=== PATIENT | male | born 1940 | race Caucasian/White ===

== ENCOUNTER → 2022-10-18 12:44 | Outpatient (BNVA) | payer MEDICARE, BC, SELFPAY | PROVIDERS: PCP Family Medicine; Visit Provider Otolaryngology | DX: B36.9 Superficial mycosis, unspecified (principal); H62.42 Otitis externa in other diseases classified elsewhere, left ear; H61.813 Exostosis of external canal, bilateral; H91.93 Unspecified hearing loss, bilateral | CPT/HCPCS: 99203 ==

== ENCOUNTER → 2022-10-24 08:57 | Outpatient (BNVA) | payer MEDICARE, BC, SELFPAY | PROVIDERS: PCP Family Medicine; Visit Provider Otolaryngology | DX: B36.9 Superficial mycosis, unspecified (principal); H62.42 Otitis externa in other diseases classified elsewhere, left ear; H72.02 Central perforation of tympanic membrane, left ear; H61.813 Exostosis of external canal, bilateral; H91.93 Unspecified hearing loss, bilateral | CPT/HCPCS: 99213 ==

== ENCOUNTER → 2022-11-21 08:03 | Outpatient (BNVA) | payer MEDICARE, BC, SELFPAY | PROVIDERS: PCP Family Medicine; Visit Provider Otolaryngology | DX: H72.02 Central perforation of tympanic membrane, left ear (principal); H61.813 Exostosis of external canal, bilateral; B36.9 Superficial mycosis, unspecified; H62.42 Otitis externa in other diseases classified elsewhere, left ear | CPT/HCPCS: 99212 ==

== ENCOUNTER → 2022-12-21 08:30 | Outpatient (BNVA) | payer MEDICARE, BC, SELFPAY | PROVIDERS: PCP Family Medicine; Visit Provider Otolaryngology | DX: H72.02 Central perforation of tympanic membrane, left ear (principal); H61.813 Exostosis of external canal, bilateral; H61.23 Impacted cerumen, bilateral | CPT/HCPCS: 69210; 99212 ==

== ENCOUNTER → 2023-01-16 11:13 | Outpatient (BNVA) | payer MEDICARE, BC, SELFPAY | PROVIDERS: PCP Family Medicine; Visit Provider Otolaryngology | DX: B36.9 Superficial mycosis, unspecified (principal); H62.42 Otitis externa in other diseases classified elsewhere, left ear; H61.23 Impacted cerumen, bilateral; H61.813 Exostosis of external canal, bilateral; H72.02 Central perforation of tympanic membrane, left ear | CPT/HCPCS: 69210; 99213 ==

== ENCOUNTER → 2023-01-30 10:49 | Outpatient (BNVA) | payer MEDICARE, BC, SELFPAY | PROVIDERS: PCP Family Medicine; Visit Provider Otolaryngology | DX: B36.9 Superficial mycosis, unspecified (principal); H61.813 Exostosis of external canal, bilateral; H62.42 Otitis externa in other diseases classified elsewhere, left ear; H72.02 Central perforation of tympanic membrane, left ear | CPT/HCPCS: 99213 ==

== ENCOUNTER → 2023-02-14 09:18 | Outpatient (BNVA) | payer MEDICARE, BC, SELFPAY | PROVIDERS: PCP Family Medicine; Visit Provider Otolaryngology | DX: H72.02 Central perforation of tympanic membrane, left ear (principal); H61.813 Exostosis of external canal, bilateral | CPT/HCPCS: 99213 ==

== ENCOUNTER → 2023-03-17 08:15 | Outpatient (BNVA) | payer MEDICARE, BC, SELFPAY | PROVIDERS: PCP Family Medicine; Visit Provider Otolaryngology | DX: H61.23 Impacted cerumen, bilateral (principal); H61.813 Exostosis of external canal, bilateral; H72.02 Central perforation of tympanic membrane, left ear; H61.892 Other specified disorders of left external ear | CPT/HCPCS: 69210; 99212 ==

== ENCOUNTER → 2023-05-12 08:38 | Outpatient (BNVA) | payer MEDICARE, BC, SELFPAY | PROVIDERS: PCP Family Medicine; Visit Provider Otolaryngology | DX: H61.813 Exostosis of external canal, bilateral (principal); H91.93 Unspecified hearing loss, bilateral | CPT/HCPCS: 99213 ==

== ENCOUNTER → 2023-07-05 08:04 | Outpatient (BNVA) | payer MEDICARE, BC, SELFPAY | PROVIDERS: PCP Family Medicine; Visit Provider Otolaryngology | DX: H61.23 Impacted cerumen, bilateral (principal); H61.813 Exostosis of external canal, bilateral | CPT/HCPCS: 69210; 99212 ==

== ENCOUNTER → 2023-10-10 08:14 | Outpatient (BNVA) | payer MEDICARE, BC, SELFPAY | PROVIDERS: PCP Family Medicine; Visit Provider Otolaryngology | DX: H61.23 Impacted cerumen, bilateral (principal); H61.813 Exostosis of external canal, bilateral; H90.6 Mixed conductive and sensorineural hearing loss, bilateral | CPT/HCPCS: 69210; 99213 ==

== ENCOUNTER → 2024-01-11 08:12 | Outpatient (BNVA) | payer MEDICARE, BC, SELFPAY | PROVIDERS: PCP Family Medicine; Visit Provider Otolaryngology | DX: H61.23 Impacted cerumen, bilateral (principal); H90.6 Mixed conductive and sensorineural hearing loss, bilateral; H61.813 Exostosis of external canal, bilateral | CPT/HCPCS: 69210; 99212 ==

== ENCOUNTER → 2025-01-13 08:27 | Outpatient (BNVA) | payer MEDICARE, BC, SELFPAY | PROVIDERS: PCP Family Medicine; Referring Provider Internal Medicine Hematology & Oncology; Visit Provider Anesthesiology Pain Medicine | DX: M54.9 Dorsalgia, unspecified (principal); M51.16 Intervertebral disc disorders with radiculopathy, lumbar region | CPT/HCPCS: 99204 ==

== ENCOUNTER → 2025-01-15 09:07 | Outpatient (BNVA) | payer MEDICARE, BC, SELFPAY | PROVIDERS: PCP Family Medicine; Visit Provider Anesthesiology Pain Medicine | DX: M54.16 Radiculopathy, lumbar region (principal); M54.9 Dorsalgia, unspecified | CPT/HCPCS: 64483; 64484; J1100; J3490; J9999 ==

== ENCOUNTER → 2025-02-03 09:04 | Outpatient (BNVA) | payer MEDICARE, BC, SELFPAY | PROVIDERS: PCP Family Medicine; Visit Provider Anesthesiology Pain Medicine | DX: M54.9 Dorsalgia, unspecified (principal); M51.16 Intervertebral disc disorders with radiculopathy, lumbar region | CPT/HCPCS: 99214 ==

== ENCOUNTER → 2025-02-12 10:19 | Outpatient (BNVA) | payer MEDICARE, BC, SELFPAY | PROVIDERS: PCP Family Medicine; Visit Provider Anesthesiology Pain Medicine | DX: M47.816 Spondylosis without myelopathy or radiculopathy, lumbar region (principal); M54.16 Radiculopathy, lumbar region; M54.9 Dorsalgia, unspecified | CPT/HCPCS: 62323; J1010; J9999 ==

== ENCOUNTER → 2025-02-25 09:57 | Outpatient (BNVA) | payer MEDICARE, BC, SELFPAY | PROVIDERS: PCP Family Medicine; Visit Provider Anesthesiology Pain Medicine | DX: M54.9 Dorsalgia, unspecified (principal); M51.16 Intervertebral disc disorders with radiculopathy, lumbar region | CPT/HCPCS: 99214 ==

== ENCOUNTER 2025-04-09 20:42 | Emergency (ER) | payer MEDICARE, BC, SELFPAY ==
--- OUTSIDE RECORDS SUMMARY | 2025-04-07 10:11 | XMS_ITS | Encounter Summary ---
Author Organization [facility] Address 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) Discharge Disposition: Home or Self Care Social History Tobacco Use Types Packs/Day Years Used Date Smoking Tobacco: Former Cigarettes Passive Smoke Exposure: Past Smokeless Tobacco: Never Alcohol Use Standard Drinks/Week Comments Never 0 (1 standard drink = 0.6 oz pur e alcohol) Sex and Gender Information Value Date Recorded Sex Assigned at Not on file Legal 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[employer] Gender Identity Not on file Sexual Orientation Not on file Occupation Industry Job Start Date Job End Date Not on file Not on file Not on file Not on file documented as of this encounter Last Filed Vital Signs Vital Sign Reading Time Taken Comments Blood Pressure 143/86 04/07/2025 12:00 PM CDT Pulse - - Temperature 36.3 C (97.3 F) 04/07/2025 10:16 AM CDT Respiratory Rate 18 04/07/2025 12:00 PM CDT Oxygen Saturation 94% 04/07/2025 12:00 PM CDT Inhaled Oxygen Concentration - - Weight 79.5 kg (175 lb 3.2 oz) 04/07/2025 10:16 AM CDT Height 185.4 cm (6' 1 ) 04/07/2025 10:16 AM CDT Body Mass Index 23.11 04/07/2025 10:16 AM CDT documented in this encounter Discharge Instructions * Attachments The following attachments cannot be sent through Care Everywhere. * Fever: General Info (Turkmen) documented in this encounter Medications at Time of Discharge dabrafenib (TAFINLAR) 75 mg capsule Take 75 mg by mouth 2 times daily before meals. trametinib (Mekinist) 2 mg tablet Take 2 mg by mouth daily before breakfast. traMADoL (ULTRAM) 50 mg tablet TAKE 1 tablet BY MOUTH every 6 HOURS FOR 30 DAYS, FOR PAIN. 11/05/2024 Lenvima 20 mg/day (10 mg x 2) capsule 10/11/2024 levothyroxine 150 mcg tablet Take 1 Tablet by mouth daily. 11/11/2024 rOPINIRole (REQUIP) 0.25 mg tabletIndication s:RLS (restless legs syndrome) Take 1 Tablet (0.25 mg) by mouth daily at bedtime. 90 Tablet 2 11/22/2024 amLODIPine (Norvasc) 10 mg tabletIndication s:HTN (hypertension), benign Take 1 Tablet (10 mg) by mouth daily. 100 Tablet 2 09/19/2024 lisinopriL (PRINIVIL) 10 mg tabletIndication s:HTN (hypertension), benign Take 20mg in the morning and 10mg at night. If blood pressure in the morning is >150/100, increase to 20mg bid. 120 Tablet 3 08/22/2024 HYDROcodone-acet aminophen (NORCO) 10-325 mg Tablet 07/18/2024 LORazepam (ATIVAN) 0.5 mg tablet 07/18/2024 magnesium oxide (MAG-OX) 400 mg (241.3 mg magnesium) tablet Take 1 tablet by oral route for 30 days. 06/11/2024 Lenvima 10 mg/day (10 mg x 1) capsule 07/15/2024 atorvastatin (LIPITOR) 20 mg tabletIndication s:Hyperlipidemia with target LDL less than 130 Take 1 Tablet (20 mg) by mouth daily. 100 Tablet 3 07/19/2024 levothyroxine 137 mcg tablet Take 1 Tablet (137 mcg) by mouth daily in the morning. 90 Tablet 3 07/05/2024 MAGNESIUM OXIDE ORAL Take by mouth. methocarbamoL (ROBAXIN) 500 mg tablet Take 1 tablet 3 times a day by oral route as needed. 09/14/2023 dorzolamide (TRUSOPT) 2 % solution instill 1 drop into each eye twice daily 11/20/2023 dorzolamide-konrad loL (COSOPT) 22.3-6.8 mg/mL solution 1 Drop daily at bedtime. 05/15/2019 latanoprost (XALATAN) 0.005 % solution Administer 1 Drop in both eyes daily at bedtime. 05/15/2019 documented as of this encounter ED Notes * Lacho Mcwilliams RN - 04/07/2025 12:25 PM CDT Pt reports to the ed with co a fever. Pt reports his highest fever being 102. Pt currently is afebrile and reports taking tylenol. Pt is a cancer pt and recently started a new medication. Pt reports that they called his oncologist and was told to come to the ed due to possible infection. Pt is a/o X4 with even and unlabored breathing and denies any CP,SOB or ABD pain. * Miller Hall MD - 04/07/2025 10:10 AM CDT HISTORY OF PRESENT ILLNESS Alvarez Soto, a 84 y.o. male presents to the ED with a Chief Complaint of Fever Subjective This patient is an 84-year-old white male who was told to come into the emergency department for evaluation of a fever. 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 He contacted his oncologist who recommended he come into the emergency department for evaluation. His fever started 2 days ago. This morning his temperature was 102. He did take Tylenol this morning. He is here with his daughter who helps take care of him. Patient denies cough, vomiting, diarrhea and dysuria. He does have some arthralgias. REVIEW OF SYSTEMS Review of Systems Constitutional: Positive for fever. Negative for appetite change, chills, diaphoresis and fatigue. HENT: Negative for congestion, ear pain, postnasal drip, rhinorrhea, sinus pressure and sore throat. Eyes: Negative for pain and visual disturbance. Respiratory: Negative for cough, chest tightness, shortness of breath and wheezing. Cardiovascular: Negative for chest pain, palpitations and leg swelling. Gastrointestinal: Negative for abdominal distention, abdominal pain, blood in stool, constipation, diarrhea, nausea and vomiting. Genitourinary: Negative for decreased urine volume, difficulty urinating, dysuria, flank pain, frequency, hematuria, testicular pain and urgency. Musculoskeletal: Positive for arthralgias. Negative for back pain, joint swelling, myalgias, neck pain and neck stiffness. Skin: Negative for rash. Neurological: Negative for dizziness, seizures, syncope, speech difficulty, weakness, light-headedness, numbness and headaches. Hematological: Negative for adenopathy. Psychiatric/Behavioral: Negative for behavioral problems, confusion, decreased concentration, dysphoric mood, self-injury, sleep disturbance and suicidal ideas. The patient is not nervous/anxious. All other systems reviewed and are negative. PAST MEDICAL HISTORY REVIEWED MEDICAL: Patient has a past medical history of BPH (benign prostatic hyperplasia), Colon polyps, COVID-19, Elevated PSA, H/O urinary frequency, [place] (hard of hearing), HTN (hypertension), HTN (hypertension), Hyperlipidemia, Hyperlipidemia, and Melanoma ([facility]/HCC) (10/10/2008). SURGICAL: Patient has a past surgical history that includes surgical other (1967); pr colonoscopy flx dx w/collj spec when pfrmd (04/26/2010); pr colonoscopy flx dx w/collj spec when pfrmd (N/A, 09/02/2014); kneereplacement (Left); turp; and pr thyroidectomy total/subtotal lmtd neck dissect (N/A, 01/18/2024). FAMILY: Patient's family history includes No Known Problems in his father and mother. SOCIAL: reports that he has quit smoking. His smoking use included cigarettes. He has been exposed to tobacco smoke. He has never used smokeless tobacco. He reports that he does not drink alcohol and does not use drugs. No history on file. Social History Other Topics Concern Not on file ALLERGIES Patient has no known allergies. HOME MEDICATIONS Discharge Medication List as of 04/07/2025 12:55 PM CONTINUE these medications which have NOT CHANGED Details dabrafenib (TAFINLAR) 75 mg capsule Take 75 mg by mouth 2 times daily before meals. trametinib (Mekinist) 2 mg tablet Take 2 mg by mouth daily before breakfast. traMADoL (ULTRAM) 50 mg tablet TAKE 1 tablet BY MOUTH every 6 HOURS FOR 30 DAYS, FOR PAIN. Lenvima 20 mg/day (10 mg x 2) capsule HOLLI !! levothyroxine 150 mcg tablet Take 1 Tablet by mouth daily. rOPINIRole (REQUIP) 0.25 mg tablet Take 1 Tablet (0.25 mg) by mouth daily at bedtime., Disp-90 Tablet, R-2 amLODIPine (Norvasc) 10 mg tablet Take 1 Tablet (10 mg) by mouth daily., Disp- 100 Tablet, R-2 lisinopriL (PRINIVIL) 10 mg tablet Take 20mg in the morning and 10mg at night. If blood pressure inthe morning is >150/100, increase to 20mg bid., Disp-120 Tablet, R-3 HYDROcodone-acetaminophen (NORCO) 10-325 mg Tablet LORazepam (ATIVAN) 0.5 mg tablet !! magnesium oxide (MAG-OX) 400 mg (241.3 mg magnesium) tablet Take 1 tablet by oral route for 30 days. Lenvima 10 mg/day (10 mg x 1) capsule HOLLI atorvastatin (LIPITOR) 20 mg tablet Take 1 Tablet (20 mg) by mouth daily., Disp- 100 Tablet, R-3 !! levothyroxine 137 mcg tablet Take 1 Tablet (137 mcg) by mouth daily in the morning., Disp-90 Tablet, R-3 !! MAGNESIUM OXIDE ORAL Take by mouth. methocarbamoL (ROBAXIN) 500 mg tablet Take 1 tablet 3 times a day by oral route as needed. dorzolamide (TRUSOPT) 2 % solution instill 1 drop into each eye twice daily dorzolamide-timoloL (COSOPT) 22.3-6.8 mg/mL solution 1 Drop daily at bedtime. latanoprost (XALATAN) 0.005 % solution Administer 1 Drop in both eyes daily at bedtime. !! - Potential duplicate medications found. Please discuss with provider. Objective PHYSICAL EXAM INITIAL VS BP: 133/81 (04/07/25 1016), Heart Rate: 84 bpm (04/07/25 1016), Resp: 18 (04/07/25 1016), Pulse: (not recorded), Temp: 97.3 ??F (36.3 ??C) (04/07/25 1016), Temp src: Tympanic (04/07/25 1016), SpO2: 97 % (04/07/25 1016), Height: 6' 1 (185.4 cm) (04/07/25 1016), Weight: 79.5 kg (175 lb 3.2 oz) (04/07/25 1016), BMI (Calculated): 23.13 (04/07/25 1016) No LMP for male patient. Physical Exam Vitals and nursing note reviewed. Constitutional: General: He is not in acute distress. Appearance: Normal appearance. He is not ill-appearing. HENT: Head: Normocephalic and atraumatic. Eyes: Conjunctiva/sclera: Conjunctivae normal. Pupils: Pupils are equal, round, and reactive to light. Cardiovascular: Rate and Rhythm: Normal rate and regular rhythm. Pulmonary: Effort: Pulmonary effort is normal. No respiratory distress. Breath sounds: Normal breath sounds. Abdominal: General: Abdomen is flat. Bowel sounds are normal. Palpations: Abdomen is soft. Tenderness: There is no abdominal tenderness. Musculoskeletal: General: No tenderness. Normal range of motion. Skin: General: Skin is warm and dry. Neurological: General: No focal deficit present. Mental Status: He is alert and oriented to person, place, and time. Psychiatric: Mood and Affect: Mood normal. Behavior: Behavior normal. DIAGNOSTICS LAB: COMPREHENSIVE METABOLIC PANEL - Abnormal Result Value SODIUM 135 (*) POTASSIUM 4.4 CHLORIDE 102 CO2 22 CALCIUM 8.6 (*) BUN 34 (*) CREATININE 1.11 GLUCOSE 122 (*) TOTAL PROTEIN 5.6 (*) ALBUMIN 3.2 (*) BILIRUBIN TOTAL 0.4 ALKALINE PHOSPHATASE 124 AST 39 ALT 29 GFR >60 ANION GAP 11 URINALYSIS WITH REFLEX MICROSCOPIC - Abnormal COLOR UA Yellow CLARITY UA Slightly Cloudy (*) SPECIFIC GRAVITY UA 1.020 PH UA 6.0 LEUKOCYTE ESTERASE UA 1+ (*) NITRITE UA Negative PROTEIN UA 1+ (*) GLUCOSE UA Negative KETONES UA Negative UROBILINOGEN UA 0.2 BILIRUBIN UA Negative BLOOD UA Negative CBC WITH DIFFERENTIAL - Abnormal WBC 4.1 (*) RBC 3.66 (*) HEMOGLOBIN 11.8 (*) HEMATOCRIT 35.3 (*) MCV 96.4 (*) MCH 32.2 MCHC 33.4 RDW 14.6 (*) RDW-STDEV 52.1 PLATELETS 124 (*) MPV 9.8 (*) NEUTROPHILS 82 (*) LYMPHOCYTES 7 (*) MONOCYTES 11 EOSINOPHILS 0 (*) BASOPHILS 0 IMMATURE GRANULOCYTES 0 NEUTROPHIL ABSOLUTE 3.33 LYMPHOCYTE ABSOLUTE 0.28 (*) MONOCYTE ABSOLUTE 0.45 EOSINOPHIL ABSOLUTE 0.00 (*) BASOPHILS ABSOLUTE 0.01 IMMATURE GRANULOCYTES ABSOLUTE 0.01 LACTIC ACID - Abnormal LACTIC ACID 2.2 (*) URINALYSIS MICROSCOPY ONLY - Abnormal WBC UA 6-10 (*) RBC UA 0-2 BACTERIA UA Negative EPITHELIAL CELLS, URINE 0-5 BLOOD CULTURE BLOOD CULTURE RADIOLOGY: XR CHEST PA OR AP 1 VW Radiologist Impression IMPRESSION: Please see below. Exam: XR CHEST PA OR AP 1 VW Date/Time of Exam: 04/07/2025 10:55 AM Reason For Exam: Trauma. Diagnosis: See Reason for Exam. Comparison: March 10, 2024. FINDINGS: Cardiac mediastinal silhouette is stable. Heart size normal. Old granulomatous residuals. Lungs are grossly clear. Scoliosis. No acute osseous finding. IMPRESSION: Nothing acute. EKG: PROCEDURES Procedures MEDICAL DECISION MAKING AND PLAN OF CARE Medical Decision Making Patient is afebrile here. His chest x-ray was normal. CBC revealed a white blood cell count of 4.1.Hemoglobin 11.8. Platelet count 124. CMP revealed a BUN of 34 and creatinine of 1.11. Lactic acid was 2.2. Urinalysis was normal. We did give him a bolus of normal saline. Discussed the case with hisoncologist, Dr. Armando, he does not recommend antibiotics at this time. He recommended follow- up at his regularly scheduled appointment. All of this was discussed with the patient. He was dischargedin stable condition. Amount and/or Complexity of Data Reviewed Labs: ordered. Radiology: ordered. Clinical Scoring & Consults Medications Administered During the ED Stay from 04/07/2025 1010 to 04/08/20252028 Date/Time Order Dose Route Action 04/07/2025 1202 CDT sodium chloride 0.9 % bolus solution 1,000 mL 1,000 mL IV New Bag Discharge Medication List as of 04/07/2025 12:55 PM CONTINUE these medications which have NOT CHANGED Details dabrafenib (TAFINLAR) 75 mg capsule Take 75 mg by mouth 2 times daily before meals. trametinib (Mekinist) 2 mg tablet Take 2 mg by mouth daily before breakfast. traMADoL (ULTRAM) 50 mg tablet TAKE 1 tablet BY MOUTH every 6 HOURS FOR 30 DAYS, FOR PAIN. Lenvima 20 mg/day (10 mg x 2) capsule HOLLI !! levothyroxine 150 mcg tablet Take 1 Tablet by mouth daily. rOPINIRole (REQUIP) 0.25 mg tablet Take 1 Tablet (0.25 mg) by mouth daily at bedtime., Disp-90 Tablet, R-2 amLODIPine (Norvasc) 10 mg tablet Take 1 Tablet (10 mg) by mouth daily., Disp- 100 Tablet, R-2 lisinopriL (PRINIVIL) 10 mg tablet Take 20mg in the morning and 10mg at night. If blood pressure inthe morning is >150/100, increase to 20mg bid., Disp-120 Tablet, R-3 HYDROcodone-acetaminophen (NORCO) 10-325 mg Tablet LORazepam (ATIVAN) 0.5 mg tablet !! magnesium oxide (MAG-OX) 400 mg (241.3 mg magnesium) tablet Take 1 tablet by oral route for 30 days. Lenvima 10 mg/day (10 mg x 1) capsule HOLLI atorvastatin (LIPITOR) 20 mg tablet Take 1 Tablet (20 mg) by mouth daily., Disp- 100 Tablet, R-3 !! levothyroxine 137 mcg tablet Take 1 Tablet (137 mcg) by mouth daily in the morning., Disp-90 Tablet, R-3 !! MAGNESIUM OXIDE ORAL Take by mouth. methocarbamoL (ROBAXIN) 500 mg tablet Take 1 tablet 3 times a day by oral route as needed. dorzolamide (TRUSOPT) 2 % solution instill 1 drop into each eye twice daily dorzolamide-timoloL (COSOPT) 22.3-6.8 mg/mL solution 1 Drop daily at bedtime. latanoprost (XALATAN) 0.005 % solution Administer 1 Drop in both eyes daily at bedtime. !! - Potential duplicate medications found. Please discuss with provider. 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 See after visit summary for patient education on discharged patients. ED Disposition ED Disposition Discharge Condition Stable User Miller Hall MD Date/Time MonApr 07, 2025 12:52 PM Comment -- ATTESTATION STATEMENTS documented in this encounter Miscellaneous Notes * Gen AI SILVIO - GENERATIVE AI HANDOFF NOTE - 04/08/2025 11:55 PM CDT documented in this encounter Plan of Treatment Pending Results Name Type Priority Associated Diagnoses Date /Time BLOOD CULTURE Microbiology Stat 5 11:00 AM CDT BLOOD CULTURE Microbiology Stat 5 10:42 AM CDT BLOOD CULTURE Microbiology Stat 5 11:00 AM CDT BLOOD CULTURE Microbiology Stat 5 10:42 AM CDT Scheduled Orders Name Type Priority Associated Diagnoses Orde r Schedule BLOOD CULTURE Microbiology Routine ONE TIME for 1 Occurrences starting 04/07/2025 until 04/07/2025 BLOOD CULTURE Microbiology Routine ONE TIME for 1 Occurrences starting 04/07/2025 until 04/07/2025 documented as of this encounter Procedures Procedure Name Priority Date/Time Associated Diagnosis Comments URINALYSIS MICROSCOPY ONLY Stat 04/07/2025 11:24 AM CDT URINALYSIS W/REFLEX MICROSCOPIC Stat 04/07/2025 11:24 AM CDT BLOOD CULTURE Stat 04/07/2025 11:00 AM CDT XR CHEST PA OR AP 1 VW Stat 10:55 AM CDT LACTIC ACID Stat 04/07/2025 10:42 AM CDT CBC WITH DIFFERENTIAL Stat 04/07/2025 10:42 AM CDT BLOOD CULTURE Stat 04/07/2025 10:42 AM CDT COMPREHENSIVE METABOLIC PANEL Stat 04/07/2025 10:42 AM CDT documented in this encounter Results * (ABNORMAL) URINALYSIS MICROSCOPY ONLY (04/07/2025 11:24 AM CDT) WBC UA 6-10(A) 0 - 2 /hpf 04/07/2025 12:21 PM [address] [facility] RBC UA 0-2 0 - 2 /hpf 04/07/2025 12:21 PM [address] [facility] BACTERIA UA Negative Negative /hpf 04/07/2025 12:[address] PM [address] [facility] EPITHELIAL CELLS, URINE 0-5 0 - 5 /hpf 04/07/2025 12:21 PM CD[address] [facility] Urine URINE SPECIMEN OBTAINED BY CLEAN CATCH PROCEDURE / Unknown Collection / Unknown 04/07/2025 11:24 AM CDT 04/07/2025 12:20 PM CDT us Miller Hall MD URINE ORDERABLES Final R esult [facility] CLIA # [id number] [address] [place] [phone] * (ABNORMAL) URINALYSIS WITH REFLEX MICROSCOPIC (04/07/2025 11:24 AM CDT) COLOR UA Yellow Pale to Dark Yellow 04/07/2025 12:[address] [facility] CLARITY UA Slightly Cloudy(A) Clear 04/07/2025 12:21 PM [address] [facility] SPECIFIC GRAVITY UA 1.020 1.003 - 1.035 04/07/2025 12:[address] [facility] PH UA 6.0 5.0 - 8.0 04/07/2025 12:21 PM [facility] LEUKOCYTE ESTERASE UA 1+(A) Negative 04/07/2025 12:21 PM [facility] NITRITE UA Negative Negative 04/07/2025 12:21 PM [facility] PROTEIN UA 1+(A) Negative 04/07/2025 12:21 PM [facility] GLUCOSE UA Negative Negative 04/07/2025 12:21 PM [facility] KETONES UA Negative Negative 04/07/2025 12:21 PM [facility] UROBILINOGEN UA 0.2 <2.0 mg/dL 12:21 PM [facility] BILIRUBIN UA Negative Negative 04/07/2025 12:21 PM [facility] BLOOD UA Negative Negative 04/07/2025 12:21 PM [facility] Urine URINE SPECIMEN OBTAINED BY CLEAN CATCH PROCEDURE / Unknown Collection / Unknown 04/07/2025 11:24 AM CDT 04/07/2025 12:20 PM CDT Miller Hall MD URINE ORDERABLES Final R esult [id number] [address] [place] [id number] * XR CHEST PA OR AP 1 VW (04/07/2025 10:55 AM CDT) Anatomical Region Laterality Modality Chest Computed Radiogr aphy 04/07/2025 10:5 5 AM CDT Impressions 04/07/2025 11:04 AM CDT IMPRESSION: Please see below. Exam: XR CHEST PA OR AP 1 VW Date/Time of Exam: 04/07/2025 10:55 AM Reason For Exam: Trauma. Diagnosis: See Reason for Exam. Comparison: March 10, 2024. FINDINGS: Cardiac mediastinal silhouette is stable. Heart size normal. Old granulomatous residuals. Lungs are grossly clear. Scoliosis. No acute osseous finding. IMPRESSION: Nothing acute. Narrative Procedure Note Adan Garcia, DO - 04/07/2025 IMPRESSION: Please see below. Exam: XR CHEST PA OR AP 1 VW Date/Time of Exam: 04/07/2025 10:55 AM Reason For Exam: Trauma. Diagnosis: See Reason for Exam. Comparison: March 10, 2024. FINDINGS: Cardiac mediastinal silhouette is stable. Heart size normal. Old granulomatous residuals. Lungs are grossly clear. Scoliosis. No acute osseous finding. IMPRESSION: Nothing acute. Miller Hall MD DIAGNOSTIC IMAGING ORDER [place] Final Result * (ABNORMAL) LACTIC ACID (04/07/2025 10:42 AM CDT) LACTIC ACID 2.2(H) <=2.0 mmol/L 04/07/2025 11:33 AM CDT [facility] Blood BLOOD SPECIMEN / Unknown Venipuncture / Unknown 04/07/2025 10:42 AM CDT 04/07/2025 10:58 AM CDT Miller Hall MD CHEMISTRY ORDERABLES Fin al Result [facility] CLIA # [id number] [address] [place] [id number] * (ABNORMAL) CBC WITH DIFFERENTIAL (04/07/2025 10:42 AM CDT) [facility] WBC 4.1(L) 4.2 - 9.1 K/uL 04/07/2025 11:12 AM [facility] RBC 3.66(L) 4.63 - 6.08 M/uL 04/07/2025 11:12 AM [facility] HEMOGLOBIN 11.8(L) 13.7 - 17.5 g/dL 04/07/2025 11:12 AM [facility] HEMATOCRIT 35.3(L) 40.1 - 51.0 % 04/07/2025 11:12 AM [facility] MCV 96.4(H) 79.0 - 92.2 fL 04/07/2025 11:12 AM [facility] MCH 32.2 25.7 - 32.2 pg 04/07/2025 11:12 AM [facility] MCHC 33.4 32.3 - 36.5 g/dL 04/07/2025 11:12 AM [facility] RDW 14.6(H) 11.0 - 14.5 % 04/07/2025 11:12 AM [facility] RDW-STDEV 52.1 36.9 - 56.9 fL 04/07/2025 11:12 AM [facility] PLATELETS 124(L) 130 - 400 K/uL 04/07/2025 11:12 AM [facility] MPV 9.8(L) 10.0 - 14.8 fL 04/07/2025 11:12 AM [facility] NEUTROPHILS 82(H) 34 - 68 % 04/07/2025 11:12 AM [facility] LYMPHOCYTES 7(L) 22 - 53 % 04/07/2025 11:12 AM [facility] MONOCYTES 11 5 - 12 % 04/07/2025 11:12 AM [facility] EOSINOPHILS 0(L) 1 - 7 % 04/07/2025 11:12 AM [facility] BASOPHILS 0 0 - 1 % 04/07/2025 11:12 AM [facility] IMMATURE GRANULOCYTES 0 % 04/07/2025 11:12 AM T [facility] NEUTROPHIL ABSOLUTE 3.33 1.78 - 5.38 K/uL 04/07/2025 11:12 AM [facility] LYMPHOCYTE ABSOLUTE 0.28(L) 1.20 - 3.40 K/uL 04/07/2025 11:12 AM [facility] MONOCYTE ABSOLUTE 0.45 0.30 - 0.82 K/uL 04/07/2025 11:12 AM [facility] EOSINOPHIL ABSOLUTE 0.00(L) 0.04 - 0.54 K/uL 04/07/2025 11:12 AM [facility] BASOPHILS ABSOLUTE 0.01 0.01 - 0.08 K/uL 04/07/2025 11:12 AM [facility] IMMATURE GRANULOCYTES ABSOLUTE 0.01 K/uL 04/07/2025 11:12 AM [facility] Blood Venipuncture / Unknown 04/07/2025 10:42 AM CDT 04/07/2025 10:58 AM CDT us Miller Hall MD HEMATOLOGY ORDERABLES nal Result [facility] CLIA # [id number] [address] [place] [phone] * (ABNORMAL) COMPREHENSIVE METABOLIC PANEL (04/07/2025 10:42 AM CDT) SODIUM 135(L) 136 - 145 mmol/L 04/07/2025 11:33 AM [facility] POTASSIUM 4.4 3.5 - 5.1 mmol/L 04/07/2025 11:33 AM [facility] CHLORIDE 102 98 - 107 mmol/L 04/07/2025 11:33 AM [facility] CO2 22 22 - 29 mmol/L 04/07/2025 11:33 AM [facility] CALCIUM 8.6(L) 8.8 - 10.2 mg/dL 04/07/2025 11:33 AM [facility] BUN 34(H) 8 - 23 mg/dL 04/07/2025 11:33 AM [facility] CREATININE 1.11 0.67 - 1.17 mg/dL 04/07/2025 11:33 AM [facility] Comment:The GFR result is no t clinically significant on patients <18 or >70 years of age. GLUCOSE 122(H) 74 - 99 mg/dL 04/07/2025 11:33 AM [facility] TOTAL PROTEIN 5.6(L) 6.6 - 8.7 g/dL 04/07/2025 11:33 AM [facility] ALBUMIN 3.2(L) 3.5 - 5.2 g/dL 04/07/2025 11:33 AM [facility] BILIRUBIN TOTAL 0.4 0.0 - 1.2 mg/dL 04/07/2025 11:33 AM [facility] ALKALINE PHOSPHATASE 124 40 - 129 U/L 04/07/2025 11:33 AM [facility] AST 39 0 - 50 U/L 04/07/2025 11:33 AM [facility] ALT 29 0 - 50 U/L 04/07/2025 11:33 AM [facility] GFR >60 mL/min/1.7 3 sq meter 04/07/2025 11:33 AM [facility] Comment:eGFR calculated with 2020 CKD-EPI equation. Vegetarian diet, extremely high or low muscle mass, and may affect results. Cystatin C with Glomerular Filtration Rate is a suitable alternative for these patients. ANION GAP 11 5 - 20 mmol/L 04/07/2025 11:33 AM [facility] Blood Venipuncture / Unknown 04/07/2025 10:42 AM CDT 04/07/2025 10:58 AM CDT us Miller Hall MD CHEMISTRY ORDERABLES Fin al Result 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 Scheduled Medication Order 04/05/2025 04/06/2025 04/07/2025 sodium chloride 0.9 % bolus solution 1,000 mL (COMPLETED) 1,000 mL, IV, ONE TIME ONLY, 1 dose, On Mon04/07/25 at 1145, at 2,000 mL/hr, Administer over 30 Minutes, Routine 1202 (New Bag - Prov ider: Lacho Mcwilliams RN)1232 (Due: Stopped - Provider: Lacho Mcwilliams RN) documented in this encounter Care Teams Staffing Specialist Relationship Specialty Start Date End Date Aleksandar Herrera MD [address] [id number] PCP - General Family Practice 07/13/23 documented as of this encounter
[2025-04-09 20:53] VITALS: BP 118/49; PULSE 92; RESP 18; TEMP 36.6; O2SAT 96; BMI 22.6
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
--- OUTSIDE RECORDS SUMMARY | 2025-04-09 23:06 | XMS_ITS ---
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 02/05/2024 Non-recurrent bilateral ingu inal hernia without obstruction or gangrene 12/21/2017 Scoliosis of thoracic spine 11/29/2010 Vitamin D deficiency 11/29/2010 Overview (04/01/2021): Continue supplement Chronic prostatitis 05/31/2010 Overview (04/01/2021): Followed by Dr Don Dyson/Urologist [place] 05/26/2010 Adenoma of large intestine 05/05/2010 Overview (04/01/2021): colonoscopy 04/26/2010 Benign prostatic hyperplasia 03/15/2010 Overview (04/01/2021): Followed by Don Dyson/Urology [place] 2006 IMO Update 02/25/2017 CKD (chronic kidney disease) [...] target LDL less than 130 Overview (04/01/2021): Current Treatment and Therapy Plans No current plan information found. Past Treatment and Therapy Plans No past plan information found. Lifetime Dose Tracking * Chemical Lifetime Dose Automatic Entry Manual Entr y Effective Dose 4 mSv 4 mSv 0 mSv Total DLP 674.8 DLP 674.8 DLP 0 DLP CTDIvol Max 40.6 mGy 40.6 mGy 0 mGy CTDIvol Min 40.6 mGy 40.6 mGy 0 mGy Resolved Problems Problem Noted Date Diagnosed Date Resolved Date Atherosclerosis of cantwell artery of extremity 06/13/20 24 07/19/2024 Urinary tract infection without hematuria 03/11/2024 03/12/2024 Left flank pain 04/12/2022 07/13/2023 Overview (07/20/2022): Date PSA Creat Hb Son: Kana: [phone] Patient cell : [phone] Pharm : Lydia , Ines, ESVIN Problem list : Allergy : None Meds : Lipitor, lisinopril, Uroxatrol 10 mg p.o. daily, Does not take blood thinners. 1994 Cystoscopy and TURP in [facility]. No urology procedures thereafter. 02-20-21 age 80 [...] flank pain. Plan: CT stone protocol at [facility]. Return to clinic 3 weeks. 04-19-22 SMD H renal colic CT: Bilateral [...] (04/01/2021): Added automatically from request for surgery [id number] Hematuria 02/20/2021 07/13/2023 Retention of urine 02/20/2021 3 Overview (04/01/2021): Date PSA Creat Hb Son: Kana: [phone] Patient cell : [phone] Pharm : Ines [place] Problem list : Allergy : None Meds : Lipitor, lisinopril, Uroxatrol 10 mg p.o. daily, Does not take blood thinners. 1994 Cystoscopy and TURP in [facility]. No urology procedures thereafter. 02-20-21 age 80 [...]
--- OUTSIDE RECORDS SUMMARY | 2025-04-09 23:06 | XMS_ITS | Encounter Summary ---
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
--- OUTSIDE RECORDS SUMMARY | 2025-04-09 23:06 | XMS_ITS | Encounter Summary ---
Author Organization [facility] Address [address] [place] [address] Care Team Providers Care Microsoft Net Developer Name Role Phone Aleksandar Herrera MD Primary Care Provider [phone] [phone] Encounter Details Date Type Department Care Team (Late st Contact Info) Description 04/08/2025 External Device Data STL ABSTRACTION Provider, Abstract NO ADDRESS ON FILE Social History Tobacco Use Types Packs/Day Years Used Date Smoking Tobacco: Former Cigarettes Passive Smoke Exposure: Past Smokeless Tobacco: Never Alcohol Use Standard Drinks/Week Comments Never 0 (1 standard drink = 0.6 oz pur e alcohol) Sex and Gender Information Value Date Recorded Sex Assigned at Not on file 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
--- OUTSIDE RECORDS SUMMARY | 2025-04-09 23:06 | XMS_ITS | Encounter Summary ---
Author Organization [facility] Address 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
--- OUTSIDE RECORDS SUMMARY | 2025-04-09 23:06 | XMS_ITS | Encounter Summary ---
Author Organization [facility] Address [address] [place] [address] Care Team Providers Care Low Vision Therapist Name Role Phone Aleksandar Herrera MD Primary Care Provider [phone] [phone] Encounter Details Date Type Department Care Team (Late st Contact Info) Description 04/08/2025 Results Follow-Up [facility] Emergency Medicine [address] [facility] [address] [place] [phone] Bsesie Everett, RN BLOOD CULTURE, BLOOD CULTURE Social History Tobacco Use Types Packs/Day Years Used Date Smoking Tobacco: Former Cigarettes Passive Smoke Exposure: Past Smokeless Tobacco: Never Alcohol Use Standard Drinks/Week Comments Never 0 (1 standard drink = 0.6 oz pur e alcohol) Sex and Gender Information Value Date Recorded Sex Assigned at Not on file 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
--- OUTSIDE RECORDS SUMMARY | 2025-04-09 23:06 | XMS_ITS | Clinical Summary ---
Author Organization [facility] Address [address] [place] [address] Care Team Providers Care Evaluation Engineer Name Role Phone Ranulfo Andersonory Agustina SHOEMAKER Primary Care Provider +1- [phone] Allergies No known active allergies Medications latanoprost (XALATAN) 0.005 % solution Administer 1 Drop in both eyes daily at bedtime. 9 Active alfuzosin (UROXATRAL) 10 mg Extended Release 24 hour tablet TAKE 1 TABLET BY MOUTH ONCE DAILY 9 Active lisinopriL (PRINIVIL) 2.5 mg tabletIndications :Benign hypertension Take 1 tablet by mouth once daily 30 Tablet 1 Active atorvastatin (LIPITOR) 20 mg tablet Take 20 mg by mouth daily. Active Hospital, Clinic, or Other Facility Administered Medication Ordered Dose Route Frequency Start Date End Date Status dorzolamide-timolol (COSOPT) 22.3-6.8 mg/mL ophthalmic solution 1 DropIndications:Dry eye 1 Drop Both Eyes DAILY AT BEDTIME 05/15/2019 Active Active Problems No known active problems Immunizations Immunization Administration Dates Next Due (PREVNAR 13)(6 WKS UP) PNEUM OCOCCAL CONJUGATE (PCV13) 0.5 ML, IM 12/31/2015 Influenza Vaccine High Dose 65+ Yrs IM 9 Pneumococcal Polysaccharide Vacc 23-svitlana IM SCHIP 06/15/2012,08/28/2006 Social History Tobacco Use Types Packs/Day Years Used Date Smoking Tobacco: Never Smokeless Tobacco: Never Tobacco Cessation:Counseling Given: No Alcohol Use Standard Drinks/Week Comments Never 0 (1 standard drink = 0.6 oz pur e alcohol) Sex and Gender Information Value Date Recorded Sex Assigned at Not on file 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 Gender Identity Not on file Sexual Orientation Not on file Last Filed Vital Signs Vital Sign Reading Time Taken Comments Blood Pressure 148/70 02/20/2021 8:20 AM CDT Pulse 62 12/18/2020 7:51 AM CDT Temperature 36.9 C (98.4 F) 02/20/2021 4:42 AM CDT Respiratory Rate 16 02/20/2021 8:20 AM CDT Oxygen Saturation 100% 02/20/2021 8:20 AM CDT Inhaled Oxygen Concentration - - Weight 84.8 kg (187 lb) 02/20/2021 4:42 AM CDT Height 188 cm (6' 2 ) 02/20/2021 4:42 AM CDT Body Mass Index 24.01 02/20/2021 4:42 AM CDT Plan of Treatment Health Maintenance Due Date Last Done Comments DTAP/TDAP/TD VACCINES (1 - Tdap) 1959 Traditional Medicare (ACO) A nnual Wellness Visit 1959 ZOSTER VACCINE (1 of 2) 1989 RSV VACCINE (60+ or ) (1 - 1-dose 75+ series) 2014 INFLUENZA VACCINE (#1) 2025 06/03/2019, 2008 COLORECTAL SCREENING Discontinued 09/02/2014, 09/02/2014, 04/26/2010 Colorectal Cancer Screening Discontinued PNEUMOCOCCAL VACCINE 50+ YEARS Completed 0 12/31/2015, 06/15/2012, 08/28/2006 FIT-DNA Q 3 years Discontinued FIT/FOBT Q 1 year Discontinued Flex Sig/CT Colonography Q 5 years Discontinued Procedures Procedure Name Priority Date/Time Associated Diagnosis Comments ENDOSCOPY, COLON, SCREENING Routine 04/26/2010 from Last 3 Months or Most Recently Relevant to Health Maintenance Results * ENDOSCOPY, COLON, SCREENING (04/26/2010) us Abstract Spg Provider GI PROCEDURE ORDERABLES Fi nal Result from Last 3 Months or Most Recently Relevant to Health Maintenance Insurance MEDICARE PART A AND B [facility] Care Teams Evaluation Engineer Relationship Specialty Start Date End Date Zander Anderson DO [address] [place] [address] E[place] [phone] PCP - General Family Practice 06/27/19
--- OUTSIDE RECORDS SUMMARY | 2025-04-09 23:06 | XMS_ITS | Clinical Summary ---
Author Organization [facility] Address [address] [address] Phone Care Team Providers Care Spray Rig Operator Name Role Phone Justin Mcdaniel DO, Gregory Primary Care Provider +1- [phone] Allergies No known active allergies Medications alfuzosin (Uroxatral) 10 mg 24 hr tablet Take 10 mg by mouth 1 (one) time each day. 1 Active atorvastatin (Lipitor) 20 mg tablet Take 20 mg by mouth 1 (one) time each day. 1 Active dorzolamide (Trusopt) 2 % ophthalmic solution Administer 1 drop into both eyes 2 (two) times a day. 1 Active latanoprost (Xalatan) 0.005 % ophthalmic solution Administer 1 drop into both eyes 1 (one) time each day. 1 Active lisinopriL (Prinivil, Zestril) 2.5 mg tablet Take 2.5 mg by mouth 1 (one) time each day. 1 Active Active Problems Problem Noted Date Diagnosed Date Left flank pain 04/12/2022 Overview (05/03/2022): Date PSA Creat Hb Son: Kana: [phone] Patient cell : [phone] Pharm : Ines [place] Problem list : Allergy : None Meds : Lipitor, lisinopril, Uroxatrol 10 mg p.o. daily, Does not take blood thinners. 1994 Cystoscopy and TURP in [facility]. No urology procedures thereafter. 02-20-21 age 80 [...] flank pain. Plan: CT stone protocol at [facility]. Return to clinic 3 weeks. [...] pelvis x-ray. Return to clinic 2 weeks. Assessment & Plan (05/03/2022 8:41 AM CDT): 04-19-22 SMD H renal colic CT: Bilateral [...] pelvis x-ray. Return to clinic 2 weeks. Assessment & Plan (04/12/2022 10:19 AM CDT): 04-12-22 age 81 Office visit: Patient complaining [...] flank pain. Plan: CT stone protocol at [facility]. Return to clinic 3 weeks. Resolved Problems Problem Noted Date Diagnosed Date Resolved Date Hematuria, gross 03/02/2021 04/12/2022 Hematuria 02/20/2021 04/12/2022 Urinary retention 02/20/2021 04/12/2022 Overview (03/02/2021): Date PSA Creat Hb Son: Kana: [phone] Patient cell : [phone] Pharm : Ines Freeman [place] Problem list : Allergy : None Meds : Lipitor, lisinopril, Uroxatrol 10 mg p.o. daily, Does not take blood thinners. 1994 Cystoscopy and TURP in [facility]. No urology procedures thereafter. 02-20-21 age 80 [...] Return to clinic 6 months for recheck. Assessment & Plan (03/02/2021 8:25 AM CDT): 03-02-21 0830 hrs appt Office visit: Doing well. Urine draining clear. Kidd catheter removed for voiding trial. Patient has 2 or 3 more days of Septra antibiotic. Plan: Return to clinic 6 months for recheck. Acute cystitis with hematuria 02/20/2021 04/12/2022 Overview (02/20/2021): Added automatically from request for surgery [id number] Immunizations Immunization Administration Dates Next Due Influenza Split High Dose Pr eservative Free IM 06/03/2019,05/24/2018,05/15/2017,06/09,06/04/2015 Influenza TIV (IM) 06/15/2012,05/11/2009 Influenza, Unspecified 07/30/2013,06/15/2011, Moderna SARS-CoV-2 Vaccination 11/02/2020,2020 Pneumococcal Conjugate 13-Valent 06/09/2016,12/2015 Pneumococcal Polysaccharide 06/15/2012, 7 Social History Tobacco Use Types Packs/Day Years Used Date Smoking Tobacco: Former Smokeless Tobacco: Never Alcohol Use Standard Drinks/Week Comments Not Currently 0 (1 standard drink = 0.6 oz pur e alcohol) PHQ-2 Answer Date Recorded Patient Health Questionnaire-2 Score 0 04/12/2022 Sex and Gender Information Value Date Recorded Sex Assigned at Not on file Legal Sex Male 11:06 AM CDT Gender Identity Not on file Sexual Orientation Not on file Last Filed Vital Signs Vital Sign Reading Time Taken Comments Blood Pressure 175/84 05/03/2022 8:18 AM CDT Pulse 56 05/03/2022 8:18 AM CDT Temperature 36.9 C (98.4 F) 05/03/2022 8:18 AM CDT Respiratory Rate 21 02/24/2021 10:29 AM CDT Oxygen Saturation 99% 05/03/2022 8:18 AM CDT Inhaled Oxygen Concentration - - Weight 84.4 kg (186 lb) 05/03/2022 8:18 AM CDT Height 185.4 cm (6' 1 ) 05/03/2022 8:18 AM CDT Body Mass Index 24.54 05/03/2022 8:18 AM CDT Plan of Treatment Health Maintenance Due Date Last Done Comments Lipid Panel 1940 MMR Vaccines (1 of 1 - Standard series) 1940 DTaP,Tdap,and Td Vaccines (1 - Tdap) 1946 Varicella Vaccines (1 of 2 - 13+ 2-dose series) 1952 Depression Screening 1957 Social Drivers of Health (SDoH) 1957 Zoster Vaccines (1 of 2) 1958 Complete Fall Risk Assessment 2004 Medicare Initial AWV [id number] 03/28/2005 RSV Vaccines (1 - 1-dose 75+ series) 2014 COVID-19 Vaccine (#1) 12/27/2021 Creatinine Level 02/24/2022 02/24/2021, , 02/22/2021, Additional history exists Potassium Level 02/24/2022 02/24/2021, 01/27, 02/22/2021, Additional history exists Influenza Vaccine (#1) 2025 , 06/03/2019, 05/24/2018, Additional history exists Pneumococcal Vaccine: 50+ Years Completed 06/09/2016, 12/31/2015, 06/15/2012, Additional history exists Pneumococcal Vaccine Completed 06/09/2016, 12/31/2015, 06/15/2012, Additional history exists HIB Vaccines Aged Out No longer eligi ble based on patient's age to complete this topic HPV Vaccines Aged Out No longer eligi ble based on patient's age to complete this topic Hepatitis A Vaccines Aged Out No long er eligible based on patient's age to complete this topic Hepatitis B Vaccines Aged Out No long er eligible based on patient's age to complete this topic IPV Vaccines Aged Out No longer eligi ble based on patient's age to complete this topic Meningococcal B Vaccine Aged Out No l onger eligible based on patient's age to complete this topic Meningococcal Vaccine Aged Out No zelda sonja eligible based on patient's age to complete this topic Rotavirus Vaccines Aged Out No longer eligible based on patient's age to complete this topic Procedures Procedure Name Priority Date/Time Associated Diagnosis Comments COMPREHENSIVE METABOLIC PANEL STAT 02/24/2021 6:01 AM CDT from Last 3 Months or Most Recently Relevant to Health Maintenance Results * (ABNORMAL) Comprehensive Metabolic Panel (02/24/2021 6:01 AM CDT) [facility] Glucose 82 70 - 100 mg/dL LAB CHEMISTRY METHOD 02/24/2021 7:18 AM CDT [facility] BUN 16 9 - 20 mg/dL LAB CHEMISTRY METHOD 02/24/2021 7:18 AM CDT [facility] Creatinine 1.01 0.66 - 1.25 mg/dl LAB CHEMISTRY METHOD 02/24/2021 7:18 AM CDT [facility] BUN/Creatinine Ratio 16 12 - 17 LAB CHEMISTRY METHOD 02/24/2021 7:18 AM CDT [facility] Sodium 141 135 - 145 mmol/L LAB CHEMISTRY METHOD 02/24/2021 7:18 AM CDT [facility] Potassium 3.5(L) 3.6 - 5.0 mmol/L LAB CHEMISTRY METHOD 02/24/2021 7:18 AM CDT [facility] Chloride 109 101 - 111 mmol/L LAB CHEMISTRY METHOD 02/24/2021 7:18 AM CDT [facility] Total Carbon Dioxide 28 22 - 30 mmol/L LAB CHEMISTRY METHOD 02/24/2021 7:18 AM CDT [facility] Anion Gap 8(L) 9 - 17 mmol/L LAB CHEMISTRY METHOD 02/24/2021 7:18 AM CDT [facility] Calcium 8.0(L) 8.2 - 10.2 mg/dL LAB CHEMISTRY METHOD 02/24/2021 7:18 AM CDT [facility] Total Protein, Serum 5.8 5.6 - 8.5 g/dL LAB CHEMISTRY METHOD 02/24/2021 7:18 AM CDT [facility] Albumin 2.7(L) 3.5 - 5.2 g/dL LAB CHEMISTRY METHOD 02/24/2021 7:18 AM CDT [facility] GLOBULIN 3.1 2.1 - 3.8 g/dL LAB CHEMISTRY METHOD 02/24/2021 7:18 AM CDT [facility] A/G Ratio 0.9(L) 1.4 - 1.7 LAB CHEMISTRY METHOD 02/24/2021 7:18 AM CDT [facility] Bilirubin, Total 0.5 0.1 - 1.3 mg/dL LAB CHEMISTRY METHOD 02/24/2021 7:18 AM CDT [facility] Alkaline Phosphatase 94 45 - 117 U/L LAB CHEMISTRY METHOD 02/24/2021 7:18 AM CDT [facility] ALT (SGPT) 26 11 - 58 U/L LAB CHEMISTRY METHOD 02/24/2021 7:18 AM CDT [facility] AST (SGOT) 25 9 - 55 U/L LAB CHEMISTRY METHOD 02/24/2021 7:18 AM CDT [facility] eGFR >60 >=60 LAB CHEMISTRY METHOD 02/24/2021 7:18 AM CDT [facility] Blood Venous blood specimen / Unknown Venipuncture / Unknown 02/24/2021 6:01 AM CDT 02/24/2021 6:41 AM CDT Ashutosh Johnson MD LAB BLOOD ORDERABLES F inal Result [facility] [address] [address] from Last 3 Months or Most Recently Relevant to Health Maintenance Insurance MEDICARE [facility] Care Teams Spray Rig Operator Relationship Specialty Start Date End Date Zander Anderson DO PCP - General Family Medicine 08/28/18
--- OUTSIDE RECORDS SUMMARY | 2025-04-09 23:06 | XMS_ITS | Encounter Summary ---
Author Organization [facility] Address [address] [facility] Attn: Epic Prelude ADT ESVIN SHAH [address] Care Team Providers Care Brush Filler Hand Name Role Phone Aleksandar Herrera MD Primary Care Provider +1 -[phone] Encounter Details Date Type Department Care Team (Latest Contact Info) Description 04/07/2025 Travel Social History Tobacco Use Types Packs/Day Years Used Date Smoking Tobacco: Former Cigarettes Passive Smoke Exposure: Past Smokeless Tobacco: Never Alcohol Use Standard Drinks/Week Comments Never 0 (1 standard drink = 0.6 oz pur e alcohol) Sex and Gender Information Value Date Recorded Sex Assigned at Not on file 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
--- OUTSIDE RECORDS SUMMARY | 2025-04-09 23:06 | XMS_ITS | Encounter Summary ---
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
--- OUTSIDE RECORDS SUMMARY | 2025-04-09 23:06 | XMS_ITS | Encounter Summary ---
Author Organization [employer] [employer] Address 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
--- NOTE | 2025-04-09 23:50 | ECG_ITS ---
[facility]10 Pat Name: Alvarez Soto Department: Room: Gender: Male Director Pharmacy Services: : 1940 Requested By: Tracy Everett Order Number: [id number] Reading MD: Measurements Intervals [place] Rate: 89 P: 130 AL: 145 QRS: 52 QRSD: 106 T: 52 QT: 355 QTc: 433 Interpretive Statements ECTOPIC ATRIAL RHYTHM MODERATE ST DEPRESSION [0.05+ mV ST DEPRESSION] No previous ECG available for comparison [email or web address]
--- NOTE | 2025-04-10 00:01 | XRR_ITS ---
PROCEDURE INFORMATION: Exam: XR Chest Exam date and time: 04/10/2025 12:46 AM Age: 84 years old Clinical indication: Dyspnea; Additional info: Shortness of breath, hiccups TECHNIQUE: Imaging protocol: Radiologic exam of the chest. Views: 1 view. COMPARISON: No relevant prior studies available. FINDINGS: Lungs: Unremarkable. No consolidation. Pleural spaces: Unremarkable. No pleural effusion. No pneumothorax. Heart/Mediastinum: Unremarkable. No cardiomegaly. Bones/joints: Unremarkable. XR/XR chest 1V portable [id number] IMPRESSION: No acute findings.
--- NOTE | 2025-04-10 00:51 | W.ED.GENADLT ---
HPI - General Adult General: Chief complaint: General Medical Stated complaint: low O2 cancer, new meds Time Seen by Provider: 04/10/25 00:38 History of Present Illness: 84-year-old man with a history of thyroid cancer, hypertension who presents to the emergency room with hiccups. He also has had some low oxygen saturations at home. Apparently he has been doing a little worse recently. He was seen at another hospital and started on antibiotics for strep. Tonight he came in because he started having hiccups and because home health that his oxygen saturations were low. Related Data Home Medications ?Medication ?Instructions ?Recorded ?Confirmed lisinopril 2.5 mg tablet 2.5 mg PO DAILY 10/18/22 02/25/25 amlodipine 10 mg tablet mg PO 01/13/25 02/25/25 atorvastatin 20 mg tablet mg PO 01/13/25 02/25/25 dorzolamide 2 % eye drops drp ophthalmic (eye) 01/13/25 02/25/25 dorzolamide 22.3 mg-timolol 6.8 ophthalmic (eye) 01/13/25 02/25/25 mg/mL eye drops latanoprost 0.005 % eye drops drp ophthalmic (eye) 01/13/25 02/25/25 lenvatinib 10 mg/day (10 mg x 1) mg PO 01/13/25 02/25/25 capsule (Lenvima) lenvatinib 12 mg/day (4 mg x 3) mg PO 01/13/25 02/25/25 capsule (Lenvima) levothyroxine 150 mcg capsule 150 mcg PO DAILY 01/13/25 02/25/25 levothyroxine 175 mcg capsule 175 mcg PO DAILY 01/13/25 02/25/25 lisinopril 10 mg tablet mg PO 01/13/25 02/25/25 lisinopril 20 mg tablet 20 mg PO BID 01/13/25 02/25/25 lorazepam 0.5 mg tablet 0.5 mg PO 01/13/25 02/25/25 morphine 15 mg tablet,extended mg PO 01/13/25 02/25/25 release ropinirole 0.25 mg tablet mg PO 01/13/25 02/25/25 tramadol 50 mg tablet 50 mg PO DAILY 01/13/25 02/25/25 ibuprofen 200 mg tablet 200 mg PO Q6H PRN 02/12/25 02/25/25 Previous Rx's ?Medication ?Instructions ?Recorded muyisdng-zoysqemjn-pzntvefbz 3.5 4 drp otic (ear) TID 10 days #10 mL 01/16/23 mg-10,000 unit/mL-1 % ear drops,susp chlorpromazine 25 mg tablet 25 mg PO Q6H PRN hiccups #14 tabs 04/10/25 Allergies Allergy/AdvReac Type Severity Reaction Status Date / Time No Known Allergies Allergy Verified 02/25/25 10:11 Review of Systems Narrative: Constitutional symptoms: Negative except as documented in HPI. Skin symptoms: Negative except as documented in HPI. Eye symptoms: Negative except as documented in HPI. ENMT symptoms: Negative except as documented in HPI. Respiratory symptoms: Negative except as documented in HPI. Cardiovascular symptoms: Negative except as documented in HPI. Gastrointestinal symptoms: Negative except as documented in HPI. Genitourinary symptoms: Negative except as documented in HPI. Musculoskeletal symptoms: Negative except as documented in HPI. Neurologic symptoms: Negative except as documented in HPI. Psychiatric symptoms: Negative except as documented in HPI. Endocrine symptoms: Negative except as documented in HPI. PFSH ED PFSH: Medical History (Updated 04/10/25 @ 02:12 by Tracy Petty MD) Thyroid cancer Hypertension Surgical History History of colonoscopy History of left knee replacement History of surgery on lower extremity hx ligament reconstruction in left leg Social History Smoking and tobacco/nicotine status: former use of tobacco/nicotine (quit 60 years ago) Second hand smoke exposure: No Alcohol intake: never Substance/Drug Use: never Physical Exam Narrative: EXAM NARRATIVE: General: Alert, no acute distress. Patient has frequent hiccups Skin: Warm, dry. Head: Normocephalic, atraumatic. Neck: Supple, trachea midline. Eye: Extraocular movements are intact. Ears, nose, mouth and throat: mucosa moist. Cardiovascular: Regular, Normal peripheral perfusion. Respiratory: Lungs are clear to auscultation, respirations are non-labored, breath sounds are equal, Symmetrical chest wall expansion. Gastrointestinal: Soft, Nontender, Non distended Musculoskeletal: Normal ROM, no deformity. Neurological: Alert and oriented, No focal neurological deficit observed. Psychiatric: Cooperative, appropriate mood & affect. Course Vital Signs: Vital signs: Vital Signs Temperature 97.8 F 04/09/25 20:53 Pulse Rate 90 04/10/25 01:12 Respiratory Rate 18 04/09/25 20:53 Blood Pressure 130/74 04/10/25 01:12 Pulse Oximetry 97 04/10/25 01:12 Oxygen Delivery Me thod Room Air 04/10/25 01:12 MDM - General Adult Medical Decision Making Differential diagnosis for patient with shortness of breath includes but is not limited to and based on the above HPI, review of systems and physical exam: Pneumonia. Bronchitis. Asthma or COPD with acute exacerbation. Acute coronary syndrome / [place]. Pulmonary embolism. Anxiety. Congestive heart failure. Viral infections including influenza and Covid-19. Atrial fibrillation. Anxiety. Pleural effusion. Pneumothorax. Orders placed to evaluate differential diagnosis based on the above differential, HPI and physical exam EKG: Time 12:38 AM. Rate 89. Normal sinus rhythm, No ST-T changes, no ectopy, normal [place] & QRS intervals, This was reviewed and interpreted by myself the ER physician at 12:45 AM Lab Review: Laboratory results were reviewed and interpreted by myself the emergency room physician. No leukocytosis. No anemia. No renal failure. Cardiac markers are negative. Urinalysis is negative for infection. I reviewed the patient's medical record. Chest x-ray: No acute process. No infiltrate. No pneumothorax. This was reviewed and interpreted by myself the emergency room physician. I also reviewed the radiology report. Reexamination: Patient remained stable. No increased work of breathing. No altered mental status. No focal motor deficits. Assessment and plan: Hiccups ? Thorazine and Benadryl in the emergency room - Discharged home - Discussed plan with patient. Answered any questions. - Evaluation and treatment of this problem were appropriate in the emergency setting. Lab Data 04/10/25 01:11 04/10/25 01:11 Radiology Impressions Chest X-Ray 04/10/25 00:01 IMPRESSION: No acute findings. Laboratory Results WBC 4.32 10^3/uL (3.29-11.43) 04/10/25 01:11 RBC 3.45 10^6/uL (3.85-5.65) L 04/10/25 01:11 Hgb 11.30 g/dL (11.27-16.99) 04/10/25 01:11 Hct 34.1 % (37-53) L 04/10/25 01:11 MCV 98.8 fl (82-101) 04/10/25 01:11 MCH 32.8 pg (27-33) 04/10/25 01:11 MCHC 33.1 g/dL (30-55) 04/10/25 01:11 RDW 15.0 % (12.1-15.1) 04/10/25 01:11 Plt Count 104 10^3/cmm (157-399) L 04/10/25 01:11 MPV 9.5 fL (7.4-10.4) 04/10/25 01:11 Neut % (Auto) 90.4 % 04/10/25 01:11 Lymph % (Auto) 5.3 % 04/10/25 01:11 Castro % (Auto) 3.2 % 04/10/25 01:11 Eos % (Auto) 0.0 % 04/10/25 01:11 Baso % (Auto) 0.2 % 04/10/25 01:11 Neut # (Auto) 3.90 10^3/uL (1.8-7.7) 04/10/25 01:11 Lymph # (Auto) 0.2 10^3/uL (0.8-4.8) L 04/10/25 01:11 Castro # (Auto) 0.1 10^3/uL (0.2-0.9) L 04/10/25 01:11 Eos # (Auto) 0.0 10^3/uL (0.0-0.8) 04/10/25 01:11 Baso # (Auto) 0.0 10^3/uL (0.0-0.1) 04/10/25 01:11 Nucleated RBC % (auto) 0 % 04/10/25 01:11 Nucleated RBCs # 0.0 /100WBC 04/10/25 01:11 Specimen Type Arterial 04/10/25 01:07 Sample Site Brachial, left 04/10/25 01:07 ABG pH 7.44 (7.35-7.45) 04/10/25 01:07 ABG pCO2 32.3 mmHg (35-45) L 04/10/25 01:07 ABG pO2 68.6 mmHg (80.0-100.0) L 04/10/25 01:07 ABG PO2/FiO2 Ratio 326 04/10/25 01:07 ABG HCO3 22.1 mmol/L (22-26) 04/10/25 01:07 ABG O2 Saturation 95.4 04/10/25 01:07 ABG Base Excess -1.4 mmol/L (-2.0-2.0) 04/10/25 01:07 Robbin Test N/a 04/10/25 01:07 A-a O2 Gradient 5.2 mmHg (5-10) 04/10/25 01:07 Hematocrit 33.9 % (42-52) L 04/10/25 01:07 Hgb O2 Saturation 94.1 % (95-100) L 04/10/25 01:07 Carboxyhemoglobin 1.0 %THgb (0.4-20.1) 04/10/25 01:07 Methemoglobin 0.4 % (0.4-1.5) 04/10/25 01:07 Total Hemoglobin 11.0 g/dL (14-18) L 04/10/25 01:07 Sodium 130.0 mmol/L (131-143) L 04/10/25 01:07 Potassium 4.1 mmol/L (3.5-5.0) 04/10/25 01:07 Glucose 133.0 mg/dL (70-115) H 04/10/25 01:07 Ionized Calcium 1.2 mmol/L (1.1-1.4) 04/10/25 01:07 O2 Delivery Device None 04/10/25 01:07 FiO2 21.0 % 04/10/25 01:07 Jack Machine Operator ID Salty 04/10/25 01:07 Sodium 134 mmol/L (136-145) L 04/10/25 01:11 Potassium 4.5 mmol/L (3.5-5.1) 04/10/25 01:11 Chloride 101 mmol/L (98-107) 04/10/25 01:11 Carbon Dioxide 23 mmol/L (22-29) 04/10/25 01:11 Anion Gap 14.5 (5-19) 04/10/25 01:11 BUN 39 mg/dL (8-23) H 04/10/25 01:11 Creatinine 1.0 mg/dL (0.7-1.2) 04/10/25 01:11 GFR Calculation Not Reportable 04/10/25 01:11 Glucose 136 mg/dL (65-115) H 04/10/25 01:11 Calculated Osmolality 289 mOsm/kg (285-295) 04/10/25 01:11 Lactic Acid 1.1 mmol/L (0.5-2.2) 04/10/25 01:11 Calcium 8.3 mg/dL (8.5-10.5) L 04/10/25 01:11 Total Bilirubin 1.0 mg/dL (0.15-1.2) 04/10/25 01:11 AST 157 U/L (0-40) H 04/10/25 01:11 ALT 78 U/L (0-41) H 04/10/25 01:11 Alkaline Phosphatase 388 U/L (40-130) H 04/10/25 01:11 Troponin T Baseline 20 ng/L (0-15) H 04/10/25 01:11 NT-Pro-B Natriuret Pep 695 pg/mL (0-450) H 04/10/25 01:11 Total Protein 5.5 g/dL (6.6-8.7) L 04/10/25 01:11 Albumin 3.1 g/dL (3.5-5.2) L 04/10/25 01:11 Globulin 2.4 g/dL (1.3-4.6) 04/10/25 01:11 Urine Color Dark yellow (Yellow) A 04/10/25 01:37 Urine Appearance Cloudy (CLEAR) A 04/10/25 01:37 Urine pH 5.5 (5-7) 04/10/25 01:37 Ur Specific Flushing 1.027 (1.005-1.030) 04/10/25 01:37 Urine Protein 2+ (Negative) A 04/10/25 01:37 Urine Glucose (UA) Negative (Normal) 04/10/25 01:37 Urine Ketones Trace (Negative) 04/10/25 01:37 Urine Blood 2+ (Negative) A 04/10/25 01:37 Urine Nitrate Negative (Negative) 04/10/25 01:37 Urine Bilirubin 1+ (Negative) H 04/10/25 01:37 Urine Urobilinogen 2.0 mg/dL (Negative) H 04/10/25 01:37 Ur Leukocyte Esterase Trace (Negative) A 04/10/25 01:37 Urine RBC 0-2 /hpf (0-2) 04/10/25 01:37 Urine WBC 0-5 /hpf (0-5) 04/10/25 01:37 Ur Squamous Epith Cells 6-10 /hpf (0-5) 04/10/25 01:37 Amorphous Sediment Not Reportable 04/10/25 01:37 Urine Bacteria None seen /hpf (NONE) 04/10/25 01:37 Hyaline Casts 9.91 /lpf 04/10/25 01:37 Urine Mucus 2+ /hpf 04/10/25 01:37 All radiology interpretation(s) finalized by discharge Discharge Plan Discharge Patient Disposition: Home Clinical Impression: Hiccups Condition: Stable Prescriptions: New chlorpromazine 25 mg tablet 25 mg PO Q6H PRN (Reason: hiccups) Qty: 14 0RF No Action lisinopril 2.5 mg tablet 2.5 mg PO DAILY uxrervos-hybzsjjnd-RM 3.5-10,000-1 mg/mL-unit/mL-% drops,suspension 4 drp otic (ear) TID 10 Days Qty: 10 2RF Rx Instructions: 4 drops into left ear canal 3 times daily. Let soak for 5 minutes each time. latanoprost 0.005 % drops ophthalmic (eye) atorvastatin 20 mg tablet PO lorazepam 0.5 mg tablet 0.5 mg PO ropinirole 0.25 mg tablet PO lisinopril 10 mg tablet PO morphine 15 mg tablet extended release PO dorzolamide 2 % drops ophthalmic (eye) Lenvima 10 mg/day (10 mg x 1) capsule PO tramadol 50 mg tablet 50 mg PO DAILY amlodipine 10 mg tablet PO dorzolamide-timolol 22.3-6.8 mg/mL drops ophthalmic (eye) Lenvima 12 mg/day (4 mg x 3) capsule PO lisinopril 20 mg tablet 20 mg PO BID levothyroxine 150 mcg capsule 150 mcg PO DAILY levothyroxine 175 mcg capsule 175 mcg PO DAILY ibuprofen 200 mg tablet 200 mg PO Q6H PRN Discharge Orders: Discharge ED (Routine); Ordered 04/10/25 Ordered By: Tracy Petty Referrals: Aleksandar Herrera [Primary Care Provider, Family Practice] Discharge Diet: Usual diet Discharge Activity: Increase activity as tolerated Patient Instructions: Opioid Safety, Pain Management, Patient Portal & El Instructions Activity Restrictions/Additional Instructions: Only take Thorazine if hiccups have become very severe and take a 25 mg Benadryl with it Thank you for choosing [facility] for your healthcare needs today. You have been screened and evaluated and felt safe for discharge. Health conditions do change or evolve sometimes and as such it is important that you follow up with your Primary Doctor to be re checked, 3-5 days is a general good time frame for follow up. You are always welcome to return to the ED for re assessment if your symptoms are worsening or you have new concerns Print Language: Upper Sorbian Coding Level of Care Code ED Refrigerator Cabinetmaker for Marques Kiser
[2025-04-10 01:12] VITALS: BP 130/74; PULSE 90; O2SAT 97
[2025-04-10 01:19] LABS: ABG PCO2 32.3 mmHg (35-45); ABG PH Result 7.44 (7.35-7.45); Alveolar-Arterial Oxygen Gradi 5.2 mmHg (5-10); Arterial Blood Gas Hematocrit 33.9 % (42-52); Blood Gas Operator Identificat SAM; Blood Gas Sample Site Brachial, left; Blood Gas Sample Type Arterial; Carboxyhemoglobin 1.0 %THgb (0.4-20.1); Glucose Level-ABG 133.0 mg/dL (70-115); HCO3 ABG 22.1 mmol/L (22-26); Ionized Calcium Level - ABG 1.2 mmol/L (1.1-1.4); Methemoglobin 0.4 % (0.4-1.5); Oxygen Saturation ABG 95.4; PO2 ABG 68.6 mmHg (80.0-100.0); PO2 FiO2 Ratio Arterial Blood 326; Potassium Level - ABG 4.1 mmol/L (3.5-5.0); Sodium Level - ABG 130.0 mmol/L (131-143)
[2025-04-10 01:29] LABS: Hematocrit 34.1 % (37-53); Hemoglobin 11.30 g/dL (11.27-16.99); Mean Corpuscular HGB Conc 33.1 g/dL (30-55); Mean Corpuscular Hemoglobin 32.8 pg (27-33); Mean Corpuscular Volume 98.8 fl (82-101); Nucleated Red Blood Cells % 0 %; Platelet Count 104 10^3/cmm (157-399); Red Blood Count 3.45 10^6/uL (3.85-5.65); White Blood Count 4.32 10^3/uL (3.29-11.43)
[2025-04-10 01:44] LABS: Glucose Urine UA Negative (Normal); Nitrate Urine Negative (Negative); Specific Gravity, Urine 1.027 (1.005-1.030)
[2025-04-10 01:47] LABS: Troponin(5th) Baseline 20 ng/L (0-15)
[2025-04-10 01:49] LABS: Lactic Sepsis W/Reflex 1.1 mmol/L (0.5-2.2)
[2025-04-10 02:01] LABS: Alanine Aminotransferase 78 U/L (0-41); Albumin Level 3.1 g/dL (3.5-5.2); Alkaline Phosphatase 388 U/L (40-130); Anion Gap 14.5 (5-19); Aspartate Amino Transferase 157 U/L (0-40); Blood Urea Nitrogen 39 mg/dL (8-23); Calcium 8.3 mg/dL (8.5-10.5); Carbon Dioxide 23 mmol/L (22-29); Chloride 101 mmol/L (98-107); Creatinine Clr Calc Pharmacy 60.4597; Globulin 2.4 g/dL (1.3-4.6); Glucose 136 mg/dL (65-115); NT Pro B Type Natriuretic Pept 695 pg/mL (0-450); Osmolality Calculated 289 mOsm/kg (285-295); Potassium 4.5 mmol/L (3.5-5.1); Sodium 134 mmol/L (136-145); Total Protein 5.5 g/dL (6.6-8.7)
[2025-04-10 02:04] LABS: UA Slide Review UA Slide Review Perf
[2025-04-10 02:05] LABS: Slide Review Slide Review Perform
[2025-04-10 02:29] VITALS: BP 125/66; PULSE 95; O2SAT 96
== END 2025-04-10 03:33 | disposition home or self-care (01) ==
PROVIDERS: Emergency Provider Emergency Medicine; PCP Family Medicine
DX: R06.6 Hiccough (principal); I10 Essential (primary) hypertension; Z85.850 Personal history of malignant neoplasm of thyroid; Z87.891 Personal history of nicotine dependence
CPT/HCPCS: 36415; 36600; 71045; 80051; 80053; 81001; 82330; 82805; 83605; 83880; 84484; 85025; 93005; 99285; Q0161; Q0162